=== PATIENT | male | born 1970 | race Caucasian/White ===

== ENCOUNTER 2016-03-02 23:55 | Emergency (ER) | payer OTHER ==
[2016-03-03] MEDS ORDERED: ASPIRIN 81 MG CHEW TAB ONE (00:30)
[2016-03-03] MEDS ORDERED: ONDANSETRON 4 MG VIAL ONE (03:17)
[2016-03-03] MEDS ORDERED: MORPHINE 4 MG/ML SYR ONE (03:18)
[2016-03-03] MEDS ORDERED: KETOROLAC 30 MG/ML VIAL ONE (04:47)
== END 2016-03-03 04:52 | disposition home or self-care (01) ==
LOC: ER 03-03 00:38
DX: R07.89 Other chest pain (principal)
CPT/HCPCS: 36415; 71010; 80053; 82550; 83735; 84484; 85025; 85379; 85610; 85730; 93005; 96374; 96375

== ENCOUNTER 2016-04-04 13:18 | Emergency (ER) | payer OTHER | END 2016-04-04 15:54 | disposition home or self-care (01) | LOC: ER 13:18 | DX: F41.1 Generalized anxiety disorder (principal); F17.200 Nicotine dependence, unspecified, uncomplicated; E11.9 Type 2 diabetes mellitus without complications; Z79.84 Long term (current) use of oral hypoglycemic drugs; I10 Essential (primary) hypertension | CPT/HCPCS: 36415; 80053; 80307; 80320; 80329; 81001; 84439; 84443; 85025; 85610 ==